=== PATIENT | male | born 1960 | race Caucasian/White ===

== ENCOUNTER → 2018-07-28 12:56 | Outpatient (CLI) | payer MEDICARE, MEDICAID, SELFPAY ==
--- NOTE | 2018-07-28 13:03 | CA_ITS ---
PROCEDURE: 2-D M-mode and color Doppler study INDICATIONS FOR THE TEST: Chest pain COPDX Heart Murmur Tobacco SmokingEX Palpitations Fatigue Syncope Edema HypertensionXDiabetes MellitusX Rheumatic Fever SOB DOEXObesityXHyperlipidemiaX Family History HD Additional History CAD PATIENT INFORMATION HEIGHT: 67 WEIGHT:223 GENDER: Male B/P:149/75 2-D/M-MODE INTERPRETATION: 2-D MEASUREMENTS OBSERVED VALUES IN CMS Right Ventricular Dimension (RVDd) 1.7 Interventricular Septum (Thickness)(IVsd) .9 Left Ventricular Internal Dimensions(LVIDd) 5.7 Left Ventricular Posterior Wall (Thickness)(LVPWd) .8 Aortic Root 3.3 Aortic Cusp Separation 1.9 Left Atrial Dimensions (LAD) 3.7 2D 1. Left atrium is mildly enlarged, left ventricle is normal size, mild concentric left ventricular hypertrophy, visually estimated ejection fraction 55% with no regional wall motion abnormality. 2. Right atrium and right ventricle are mildly enlarged with normal contractility. 3. The aortic valve is minimally thickened and fibrosed. 4. The mitral and tricuspid valvular grossly normal. 5. The pulmonic valve is poorly visualized. 6. No significant pericardial effusion noted. DOPPLER INTERROGATION: Doppler interrogation of the aortic, mitral and tricuspid valvular presence of mild mitral and tricuspid regurgitation, tricuspid regurgitation jet velocity is inadequate for calculation of the right ventricular systolic pressure, diastolic parameters are inconclusive. CONCLUSION: 1. Mild biatrial enlargement, normal left ventricular size, mild concentric left ventricular hypertrophy, visually estimated ejection fraction 55% with no regional wall motion abnormality, diastolic parameters are inconclusive. 2. Mildly enlarged right ventricle with normal contractility. 3. No significant pericardial effusion noted.
== END ==
PROVIDERS: PCP Family Medicine; Visit Provider Internal Medicine
DX: I11.9 Hypertensive heart disease without heart failure; I25.118 Atherosclerotic heart disease of native coronary artery with other forms of angina pectoris; J43.8 Other emphysema; R00.2 Palpitations; Z95.5 Presence of coronary angioplasty implant and graft; E78.49 Other hyperlipidemia
CPT/HCPCS: 93306

== ENCOUNTER → 2021-02-20 07:36 | Outpatient (CLI) | payer MEDICARE, MEDICAID, SELFPAY ==
--- NOTE | 2021-02-20 | CA_ITS ---
APPROVED REPORT Exam: Pharmacologic Technologist: Val Mendoza Ht: 5 ft 7 in Wt: 217 lbs BSA: 2.09 m2 HR: 82 bpm BP: 136/82 mmHg Indications: CAD, Abnormal EKG, Preop clearance Medical History Medications: Lisinopril,,,,, Omeprazole,,,,, Isosorbide,,,,, Aspirin,,,,, Vitamin D3,,,,, Atorvastatin,,,,, Carvedilol,,,,, CloPIdogrel,,,,, Diclofenac,,,,, Januvia,,,,, Ibuprofen,,,,, Nitroglycerin,,,,, Stress Test Details Test: LEXISCAN HR Resting HR: 83 bpm Max Heart Rate (APMHR): 161.082632 bpm Max HR Achieved: 110 bpm Target HR (85% APMHR): 136.437667 bpm % of APMHR: 68.32 Recovery HR: 94 bpm BP Resting BP: 136.0/82.0 mmHg Max BP: 139.0/76.0 mmHg Recovery BP: 137.0/80.0 mmHg ECG Resting ECG: Normal sinus rhythm, rightward axis, cannot rule out old inferior CO Clinical Exercise duration: 04:00 min Highest Stage Achieved: Stress ECG Conclusion Symptoms: Shortness of air, mildly lightheaded. No chest pain. Arrhythmias/Ectopy: Rare PVC ST-T Changes: No significant changes. Conclusion: Unremarkable Lexiscan stress. Myoview images reported separately. Test Summary REST . . . . . . . Resting REST 03:05 . . 83 . 136/ 82 . . Stage 1 . . . . . . . Myoview Injected Stage 1 01:00 . . 109 . . . . Stage 2 01:00 . . 108 . 139/ 76 . . Stage 3 01:00 . . 89 . 131/ 81 . . Stage 4 01:00 . . 91 . 127/ 75 . Stop exercise at 04:00 RECOVERY 01:00 . . 91 . 124/ 79 . . RECOVERY 02:00 . . 93 . 124/ 79 . . RECOVERY 03:00 . . 95 . 137/ 80 . . RECOVERY 03:20 . . 93 . 137/ 80 . . Electronically signed by : Mann Light MD 02/20/2021 21:04:31
--- NOTE | 2021-02-20 07:37 | NM_ITS ---
APPROVED REPORT Exam: Nuclear Stress Test Indication: CAD, Abnormal EKG, HTN, DM, High cholesterol, Family history Patient Location: Outpatient Stress Tech: Val Mendoza [place] Tech:Sabi Garzon, ARRT, RT (R)(N) Ht: 5 ft 7 in Wt: 217 lbs HR: 82 bpm BP: 136/82 mmHg BSA: 2.09 m2 BMI: 33.9 History: CAD, Abnormal EKG, HTN, DM, High cholesterol, Family history Procedure: Patient received a 0.4 mg of intravenous Lexiscan, resting heart rate 82 bpm, resting blood pressure 136/82 mmHg, with Lexiscan maximum heart rate achived was 108 bpm which is Less than 85 % of the maximum predicted heart rate and blood pressure was 139/76 mmHg. With Lexiscan, patient denied any complaint of chest pain. Electrocardiogram Resting electrocardiogram shows sinus rhythm, with Lexiscan there is less than 1.[address] segment depression noted from the baseline EKG. The EKG portion of the Lexiscan is nondiagnostic. Cardiac Stress and Resting SPECT Images: Cardiac Stress and Resting SPECT images were obtained using technetium 99m Myoview 30.5 mCi stress and 10.66 mCi at rest. Gated SPECT for analysis of segmental wall motion and calculation of the ejection fraction also done. Prone images were also obtained. Cardiac stress and resting SPECT images show uniform myocardial activity without segmental perfusion abnormality, computer derived ejection fraction is 48% with no regional wall motion abnormality, right ventricle is normal size and contractility. Conclusion: 1. The EKG portion of the Lexiscan is nondiagnostic. 2. No scintigraphic evidence of reversible ischemia seen, computer derived ejection fraction 48% with no regional wall motion abnormality, right ventricle is normal size and contractility. 3. Normal Lexiscan Myoview study. Electronically signed by : Mann Light MD 02/20/2021 21:17:24
--- NOTE | 2021-02-20 09:42 | HMH.ITSHM ---
Current Home Medications as stated by this patient Gilson Kulkarni or outreach representative. []SITAGLIPTIN RANOLAZINE OMEPRAZOLE NITRO LISINOPRIL ISOSORBIDE GLIMEPIRIDE DICLOFENAC DAPAGLIFLOZIN CLOPIDOGREL VITAMIN D3 CARVEDILOL ATORVASTATIN ASA
== END ==
PROVIDERS: PCP Family Medicine; Visit Provider Physician Assistant
DX: E78.2 Mixed hyperlipidemia (principal); I11.9 Hypertensive heart disease without heart failure; J43.8 Other emphysema; Z01.810 Encounter for preprocedural cardiovascular examination; Z95.5 Presence of coronary angioplasty implant and graft; I25.10 Atherosclerotic heart disease of native coronary artery without angina pectoris
CPT/HCPCS: 78452; 93017; A9502; J2785